=== PATIENT | male | born 1975 | race Caucasian/White ===

== ENCOUNTER 2016-10-11 16:42 | Emergency (ER) | payer BC ==
[2016-10-11 16:48] VITALS: BP 126/76
[2016-10-11] MEDS ORDERED: Ibuprofen 200 MG Tab PO ONE (17:38)
[2016-10-11] MEDS ORDERED: Bacitracin/Neomycin/Polymyxin B Oint 0.9 GM U/D Packet TOP ONE (17:51)
--- NOTE | 2016-10-11 17:58 | EDM.PDOC ---
ED HPI Trauma - General Chief Complaint: Lower Extremity Injury/Pain Stated Complaint: leg injury Time Seen by Provider: 10/11/16 17:10 Source: Reports: Patient History Limitations: Reports: No limitations - History of Present Illness INITIAL COMMENTS - FREE TEXT/NARRATIVE: my General medical History and physical: History of present illness: [Patient comes to the emergency room today complaining of left lower leg pain. 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 A bull slammed against the patient's leg and pinned it against an iron gate. The patient has had pain to his left lateral lower leg since the incident. He had limping and significant pain to his left lower leg with any movement and weightbearing. The pain was severe, at times he thought he may black out or vomit due to the discomfort. His [id number] drove him to the ER today. He has not taken any medications for his symptoms. He denies numbness and tingling. No pain to his knee or upper leg. He denies any other injuries. Review of Systems: As per history of present illness and below otherwise all systems reviewed and negative. Past medical history: As per history of present illness and as reviewed below otherwise noncontributory. Surgical history: As per history of present illness and is reviewed below other schulz noncontributory. Social history: No reported history of drug or alcohol abuse. Family history: As per history of present illness and is reviewed below otherwise noncontributory. Physical exam: HEENT: Atraumatic, normocephalic. Extremities: Abrasion to left lower lateral leg just above the ankle. Mild ecchymosis present over tibia. Dorsal pulses are 2+ and capillary refill is less than 2 seconds. Has good sensation to his toes. Complains of pain to his lower leg with plantar flexion and extension. Neurovascular unremarkable. Neuro: Awake, alert, oriented. Motor and sensory unremarkable throughout. Exam nonfocal. Diagnostics: [Left lower leg and ankle x-ray] Therapeutics: [Ibuprofen 800 mg by mouth] Impression: [Left lower leg strain and contusion] Plan: [Patient declines narcotics and pain injections while in the emergency room. Radiologist reports no fractures or bony abnormalities on x-ray. Discussed with patient that his x-ray is unremarkable. We'll treat as muscle strain and sprain. Recommend rest, ice, elevation and gentle stretching. he is offered crutches which he declines. Recommend weightbearing as tolerated. Strict return precautions are discussed with the patient. He is in agreement with today's plan. All of his questions are answered and concerns are addressed.] Definitive disposition and diagnosis is appropriate pending reevaluation and review of above. Allergies/ADRs: Allergies No Known Allergies Allergy (Verified 10/11/16 16:48) Home Medications: Ambulatory Orders . [No Known Home Meds] 01/15/16 [Confirmed 10/11/16] Review of Systems - Review of Systems Review Of Systems: ROS reveals no pertinent complaints other than HPI. Trauma Exam - Physical Exam Exam: See Below Course - Vital Signs Last Recorded V/S: Last Vital Signs Temp 97.2 F 10/11/16 16:43 Pulse 79 10/11/16 16:43 Resp 16 10/11/16 16:43 BP 126/76 10/11/16 16:43 Pulse Ox 99 10/11/16 16:43 - Orders/Labs/Meds Orders: Active Orders 24 hr Category Date Time Status Ankle Min 3V Lt [CR] Stat Exams 10/11/16 16:48 Taken Foot Comp Min 3V Lt [CR] Stat Exams 10/11/16 16:48 Taken Meds: Medications Discontinued Medications Generic Name Dose Route Start Last Admin Trade Name Bryant PRN Reason Stop Dose Admin Ibuprofen 800 mg 10/11/16 17:38 10/11/16 17:50 Motrin PO 10/11/16 17:39 800 mg ONETIME ONE Administration Neomycin/Polymyxin/Bacitracin 1 each 10/11/16 17:51 Triple Antibiotic Oint TOP 10/11/16 17:52 ONETIME ONE Departure - Departure Time of Disposition: 18:00 Disposition: Home, Self-Care 01 Condition: good Clinical Impression: Contusion, lower leg Qualifiers: Encounter type: initial encounter Laterality: left Qualified Code(s): S80.12XA - Contusion of left lower leg, initial encounter Forms: ED Department Discharge Additional Instructions: My general discharge The following information is given to patients seen in the emergency department who are being discharged home. This information is to outline your options for follow-up care and provides all patient seen in our emergency department with a follow-up referral. The need for follow-up, as well as the timing and circumstances, are variable depending upon the specifics of each emergency department visit. If you don't have a primary care physician on staff, we will provide you with a referral. We always advise to contact your personal physician following an emergency department visit to inform them of the circumstances of the visit and for follow-up with them and/or the need for any referrals to a consulting specialist. The emergency department will also refer you to a specialist when appropriate. This referral assures that you have the opportunity for follow-up care with a specialist. All of these measures are taken in an effort to provide you with optimal care, which includes your follow-up. Under all circumstances we always encourage you to contact your private physician who remains a resource for coordinating your care. When calling for follow-up care, please make the office aware that this follow-up is from your recent emergency room visit. If for any reason you are refused follow-up please contact the [facility] emergency department at and ask to speak to the [place] [address] Followup with primary care provider in 48-72 hours. Tylenol alternating with ibuprofen every 4-6 hours as needed for pain. Rest, ice, elevation, regular stretching. Return to ER as needed as discussed. - My Orders Last 24 Hours: My Active Orders 10/11/16 16:48 Ankle Min 3V Lt [CR] Stat Foot Comp Min 3V Lt [CR] Stat - Assessment/Plan Last 24 Hours: My Active Orders 10/11/16 16:48 Ankle Min 3V Lt [CR] Stat Foot Comp Min 3V Lt [CR] Stat
== END 2016-10-11 18:05 | disposition home or self-care (01) ==
LOC: CC.ED 16:42
DX: S86.912A Strain of unspecified muscle(s) and tendon(s) at lower leg level, left leg, initial encounter (principal); S80.12XA Contusion of left lower leg, initial encounter; W23.0XXA Caught, crushed, jammed, or pinched between moving objects, initial encounter
CPT/HCPCS: 73610; 73630; 99283; A9270